=== PATIENT | female | born 1985 | race Caucasian/White ===

== ENCOUNTER 2016-10-11 01:15 | Inpatient (IN) ==
[~2016-10-11 01:15] MED LIST: Famotidine 20 MG/2 ML VIAL IVP PRN; Naloxone 0.4 MG/ML INJ IVP PRN; Ondansetron 4 MG/2 ML VIAL IVP PRN; Oxytocin 20 units/ LR 1000 mL 20 UNIT/1,000 ML BAG IVC SCH; Ringers Solution, Lactated 1,000 ML IVC SCH; Ringers Solution, Lactated 1,000 ML ONE
--- NOTE | 2016-10-11 01:24 | OB/GYN History & Physical ---
Date of Encounter: 10/11/16 Time of Encounter: 01:16 Assessment and Plan (1) 35 weeks gestation of Current visit: Yes Status: Acute (2) Placental abruption in third trimester Current visit: Yes Status: Acute 20 week US shows anterior placenta and normal fetus. Dr. Lopez at bedside for evaluation. Moderate amount of red blood noted to pad. On speculum insertion large amount of dark red blood pooling noted. Cervix swabbed, no active bleeding noted from cervix. Cervical exam shows fingertip/[address] Lopez who discussed placental abruption diagnosis with patient decision made to proceed with induction of labor with pitocin Admit to labor and delivery, start induction of labor with pitocin per policy Labs: CBC, PIH eval, Coagulation panel, Type and screen, UDS, H/H 11.6/35.2 PIH labs negative UDS negative PCN for GBS Nu[place] and epidural as desired Anticipate History of Present Illness Chief complaint: Vaginal bleeding HPI: Ms. Ackerman is a 31 year old female with complaints of vaginal bleeding. Pt states she was going to bathroom tonight and felt a large gush and noted it was blood, bleeding continued as she came to hospital. Reports good movement, and occasional contractions. Pt states uncomplicated course. Pt states this occurred in her last a few days prior to her due date and she delivered the next day by induction of labor. 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 History of depression is on Zoloft. Labs:B positive, Rubella immune, GBS unknown, all other serologies negative, Past Med Surg Social Fam HX - Past Medical History Medical history: no medical history Psychiatric history: depression - Social History Smoking Status: Current every day smoker Smokeless Tobacco Status: No Alcohol use: none - Family History Mother Adopted: No Family Member Ethnicity: Non- Living Status: Still Living Hx Family Cardiac Disorders: Yes Hx Family Respiratory Disorders: No Hx Family Cancer: No Hx Family GI Disorders: No Hx Family Genitourinary Disorders: No Hx Family Endocrine Disorder: No Hx Family Musculoskeletal Disorders: No Hx Family Neuromuscular Disorders: No Hx Family Neurologic Disorders: No Hx Family HEENT Disorders: No Hx Family Autoimmune Disorders: No Hx Family Reproductive Disorders: No Hx Family Psychosocial Disorders: No Hx Family Medical Disorders: No Obstetrical History - Pregnancies : 4 Para: 3 Term: 3 : 0 Ab's: 0 Livin Medications and Allergies Loratadine [Claritin] 10 mg PO DAILY #30 tablet 01/30/15 [Rx] Pnv No.122/Iron/Folic Acid [ Multi Tablet] 10/11/16 [History] Sertraline [Zoloft] 50 mg PO DAILY 10/11/16 [History] Allergies No Known Allergies Allergy (Verified 07/25/15 11:17) Exam - Vital Signs Vital signs: 122/61 P78 - Constitutional Constitutional: well developed, well nourished, no acute distress, average body habitus - Neck Neck exam: full ROM - Lungs Respiratory exam: CTAB - Cardiovascular Cardiovascular exam: RRR, +S1, +S2 - Abdomen Abdomen: Present: bowel sounds normal, gravid, diffuse tenderness Abdomen detail: right lower quadrant: tenderness, left lower quadrant: tenderness - Extremities Extremities exam: normal capillary refill, normal inspection - Vulva Vulva: bilateral: normal - Cervix Dilation: 0 (Fingertip per ) - Uterus Uterus exam: Present: normal size, normal contour - Comments Comments: Baseline 125/ moderate/ +accels/-decels Results Result Diagrams: 10/11/16 01:30 10/11/16 01:30 All other labs normal. - VTE Reasons for not Prescribing Prophylaxis: Medical contraindication
[2016-10-11 01:33] LABS: Basophils % 0.3 %; Eosinophils % 3.2 %; Hematocrit 35.2 % (35.3-44.9); Hemoglobin 11.6 g/dL (11.5-15.4); Immature Granulocytes % 2.9 % (0-4); Lymphocytes % 13.9 %; Mean Corpuscular Hemoglobin 29.5 pg (28.0-33.3); Mean Corpuscular Volume 89.6 fL (83.0-100.0); Mean Platelet Volume 11.4 fL (9.4-12.4); Monocytes % 9.5 %; Neutrophils # 11.3 K/mcL (1.6-8.9); Platelet Count 192 K/mcL (140-400); Red Blood Count 3.93 M/mcL (3.82-4.97); Red Cell Distribution Width 13.4 % (11.5-14.5); Segmented Neutrophils % 70.2 %
[2016-10-11 01:34] LABS: Basophils # 0.1 K/mcL (0.0-0.2); Eosinophils # 0.5 K/mcL (0.0-0.6); Lymphocytes # 2.3 K/mcL (0.6-4.6); Monocytes # 1.5 K/mcL (0.0-1.3)
[2016-10-11 01:36] LABS: Bilirubin,Urine Negative (Negative); Blood,Urine Large (Negative); Clarity,Urine Clear (Clear); Color,Urine Yellow (Yellow); Glucose,Urine (UA) Normal (Normal); Ketones,Urine Negative (Negative); Leukocyte Esterase,Urine Negative (Negative); Nitrite,Urine Negative (Negative); Protein,Urine Negative (Neg-Trace); Specific Gravity,Urine 1.006 (1.010-1.025); Urobilinogen,Urine Normal (Normal)
[2016-10-11 01:48] LABS: eGFR For African Americans > 60 (> 60); eGFR For Non-African Americans > 60 (> 60)
[2016-10-11 01:49] LABS: Amphetamine Screen,Urine Negative ng/mL (Cutoff=1000); Barbiturate Screen,Urine Negative ng/mL (Cutoff=200); Benzodiazepines Screen,Urine Negative ng/mL (Cutoff=200); Cannabinoid Screen,Urine Negative ng/mL (Cutoff = 50); Cocaine Screen,Urine Negative ng/mL (Cutoff= 300); Opiate Screen,Urine Negative ng/mL (Cutoff=300); Phencyclidine Screen,Urine Negative ng/mL (Cutoff=25)
[2016-10-11 01:50] LABS: Alanine Aminotransferase 17 Units/L (0-55); Aspartate Amino Transferase 17 Units/L (5-34); BUN/Creatinine Ratio 6 (6-26); Lactate Dehydrogenase 184 Units/L (159-327); Uric Acid 3.1 mg/dL (2.6-6.0); eGFR For African Americans > 60 (> 60); eGFR For Non-African Americans > 60 (> 60)
[2016-10-11 01:52] LABS: Blood Urea Nitrogen 3 mg/dL (7-20)
[2016-10-11 01:53] LABS: Bacteria,Urine Few per hpf (None-Few); Squamous Epithelial Cell,Urine Few per lpf (None-Few)
[2016-10-11 01:57] LABS: Prothrombin Time 10.6 Seconds (9.4-12.1)
[2016-10-11 01:59] LABS: Activated Partial Thrombo Time 24.4 Seconds (26.0-36.0)
[2016-10-11] MEDS ORDERED: Penicillin G Potassium 5,000,000 UNIT in D5% in Water (Mini-Bag+) 100 ML IVPB ONE (02:20)
[2016-10-11] MEDS ORDERED: *HR* Nalbuphine 20 MG/ML AMPUL IVP PRN (02:29)
[2016-10-11] MEDS: Penicillin G Potassium 2,500,000 UNIT in D5% in Water 100 ML IVPB SCH ×2 (02:29→11:43)
--- NOTE | 2016-10-11 07:07 | OB Labor Progress Note ---
Date of Encounter: 10/11/16 Time of Encounter: 07:05 Labor Progress Note - Subjective Subjective: Pt sleeping at this time - Vital Signs Vital Signs: VSS - Cervix Cervix: 3/70/-2 per RN - Heart Tones Heart Tones: 125/moderate/+accels.-decels - Mariano Colon Mariano Colon: q2-3 - Plan Plan: No further vaginal bleeding. Continue current management plan Pitcon per policy PCN for GBS unkn Anticipate
[2016-10-11] MEDS ORDERED: *HR* FentaNYL (PF) 100 MCG/2 ML VIAL ONE ×2 (07:32→11:32)
[2016-10-11] MEDS ORDERED: Bupivacaine-MPF 0.25% 10 ML VIAL ONE ×2 (07:33→11:32)
[2016-10-11] MEDS ORDERED: Epidural Premix (fent/bupiv) 110 ML EP ONE ×2 (07:33→12:57)
[2016-10-11 08:10] LABS: Calcium 8.4 mg/dL (8.6-10.8); Carbon Dioxide 22 mEq/L (19-29); Chloride 108 mEq/L (98-109); Glucose 88 mg/dL (70-99); Osmolality,Calculated 278 (280-300); Potassium 3.4 mEq/L (3.5-4.5); Sodium 136 mEq/L (136-145)
--- NOTE | 2016-10-11 08:14 | Anesthesia Evaluation PreOp ---
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: Denies Any Significant HX Other Medical History: Denies Any Significant HX Anesthesia History: No Prior Anesthetic Complications (denies personal h/o GA or NA complications; denies family h/o GA complications) : Yes Test: Positive Alcohol Use: none Drug use: none Medications and Allergies Loratadine [Claritin] 10 mg PO DAILY #30 tablet 01/30/15 [Rx] Pnv No.122/Iron/Folic Acid [ Multi Tablet] 10/11/16 [History] Sertraline [Zoloft] 50 mg PO DAILY 10/11/16 [History] Allergies No Known Allergies Allergy (Verified 07/25/15 11:17) - Meds/Allergy Pre-op Review Medications Reviewed: Yes Allergies Reviewed: Yes Beta Blockers on Current Med List: No Anesthesia Results - Labs 10/11/16 01:30 10/11/16 01:30 Anesthesia Exam 124/58, HR 71, RR22 Height: 1.6m Weight: 65kg NPO (# of Hours): solids > 8hrs Pain Scale: 10 Pain Scale Used: Numeric (1 - 10) - HEENT Pupil (Motor): Pupils equal Mallampati: II Teeth: Normal Oral Opening: Greater than 3 - INDUSTRIAL TECHNICIAN LOC: Oriented INDUSTRIAL TECHNICIAN Motor: Normal RUE, Normal LUE, Normal RLE, Normal LLE, Normal Face INDUSTRIAL TECHNICIAN Sensory: Normal: RUE, LUE, RLE, LLE, Face - Cardiac Rhythm: Regular Murmur: None - Pulmonary Breath Sounds: bilateral Clear Respiratory Effort: Symmetrical Anesthesia Assess/Plan ASA Score: 2 Modified [place] Scale for Level of Consciousness: Anixous, agitated or restless Anesthetic Plan: Regional Autologous Blood: No Monitoring Plan: Standard Monitors Recovery Plan: Other
[2016-10-11] MEDS ORDERED: *HR* FentaNYL (PF) 100 MCG/2 ML VIAL EP ONE (08:17)
[2016-10-11] MEDS ORDERED: Bupivacaine-MPF 0.25% 10 ML VIAL EP ONE (08:17)
--- NOTE | 2016-10-11 08:17 | Anesthesia Procedures ---
Date of Encounter: 10/11/16 Time of Encounter: 08:15 Procedures: Anesthesia - Epidural/Spinal Patient ID/Chart reviewed: Yes Patient examined: Yes OB Eval: Gestational age: 35 weeks 3 days OB Eval: : 4 OB Eval: Hx Para: 3 OB Eval: Dilated at (cm): 3 OB Eval: Contractions: Non-stressed pattern Consent Obtained: Yes Supplemental Oxygen: None/Room Air Site Prep: Aseptic Technique, Sterile prep and drape, Povidone-Iodine 1% Patient position: upright Local Anesthetic: Lidocaine 1% Amount of Local Anesthetic used: 3 Touhy Needle Gauge: 18 Touhy Needle Depth (cm): 4 Catheter Depth at Skin (cm): 9 Test Dose (1.5% Lido + Epi): Volume given (mls): 5 Test Dose Result: Negative Loading Dose: 0.25% Marcaine (mls): 5 Loading Dose: Fentanyl (mcg): 100 Loading Dose Administered: Thru Catheter Infusion Rate (mls/hr): 14 (w/ demand bolus of 4mL q20min PRN) Catheter Secured in Place: Tegaderm, Tape Interspace Used: L3-L4 Loss of Resistance (RIGOBERTO): Yes Blood: No CSF: No Paresthesia: Yes (transient RLE w/ passage of catheter) Vitals + FHT's: please see Stacey MENDOZA's electronic documentation for VS
[2016-10-11] MEDS ORDERED: Epidural Premix (fent/bupiv) 110 ML EP SCH (08:30)
--- NOTE | 2016-10-11 08:58 | OB Labor Progress Note ---
Date of Encounter: 10/11/16 Time of Encounter: 08:56 Labor Progress Note - Subjective Subjective: Pt reports increasing pain with contractions. - Cervix Cervix: 3/80/-2 - Heart Tones Heart Tones: Category I - [place]: 1.5-3.5 minutes - Plan Plan: Continue to monitor. Anesthesia to evaluate epidural. AROM when able. Anticipate .
[2016-10-11] MEDS ORDERED: Loratadine 10 MG TABLET PO SCH (09:00)
--- NOTE | 2016-10-11 09:29 | Anesthesia Progress Note ---
Date of Encounter: 10/11/16 Time of Encounter: 09:00 Anesthesia Note - Note Note: 10/11/16 09:27 called to patient bedside to evaluate breakthrough labor pain; patient describes bilateral lower abdominal pain with contractions L side > R side. Patient positioned onto L side and 10mL of 0.125% bupivicaine administered through epidural catheter. 15 min later patient reports significant improvement in pain. VSS
--- NOTE | 2016-10-11 11:29 | OB Labor Progress Note ---
Date of Encounter: 10/11/16 Time of Encounter: 11:27 Labor Progress Note - Subjective Subjective: Pt reports pain 5/10 with contractions at this time. - Cervix Cervix: 4/80/-1 - Heart Tones Heart Tones: Category I - [place]: irregular on toco. difficult to trace. - Interventions Interventions: AROM for large amount bloody fluid. IUPC placed posteriorly. - Plan Plan: Continue to monitor and titrate Pitocin.
--- NOTE | 2016-10-11 14:57 | OB Labor Progress Note ---
Date of Encounter: 10/11/16 Time of Encounter: 14:55 Labor Progress Note - Subjective Subjective: Pt reports contractions are feeling better since epidural bolus. - Cervix Cervix: 7-8/100/0 - Heart Tones Heart Tones: Category I- baseline 115, moderate variability - [place]: 2-3 - Plan Plan: COntinue to monitor. Anticipate .
--- NOTE | 2016-10-11 15:31 | Anesthesia Progress Note ---
Date of Encounter: 10/11/16 Time of Encounter: 14:28 Anesthesia Note - Note Note: Called to patient bedside to evaluate breakthrough labor pain. Confirmed catheter to still be secured at 9cm bhavin. Patient positioned in slight LLD tilt. 7.5mL of 0.25% bupivicaine + 100mcg fentanyl administered. Patient reports significant improvement in labor pain. VSS 10/11/16 15:29
[2016-10-11] MEDS ORDERED: Lidocaine 1% 20 ML MDV ONE (15:36)
[2016-10-11] MEDS ORDERED: MethylPREDNISolone 40 MG/ML VIAL IVP ONE (15:46)
[2016-10-11 16:10] LABS: Basophils # 0.1 K/mcL (0.0-0.2); Basophils % 0.3 %; Eosinophils # 0.4 K/mcL (0.0-0.6); Eosinophils % 2.3 %; Hematocrit 35.6 % (35.3-44.9); Hemoglobin 11.5 g/dL (11.5-15.4); Immature Granulocytes % 1.9 % (0-4); Lymphocytes % 10.9 %; Mean Corpuscular HGB Conc 32.3 g/dL (31.6-35.5); Mean Corpuscular Hemoglobin 29.7 pg (28.0-33.3); Mean Platelet Volume 11.3 fL (9.4-12.4); Monocytes # 1.3 K/mcL (0.0-1.3); Monocytes % 7.2 %; Neutrophils # 13.8 K/mcL (1.6-8.9); Platelet Count 165 K/mcL (140-400); Red Blood Count 3.87 M/mcL (3.82-4.97); Red Cell Distribution Width 13.8 % (11.5-14.5); Segmented Neutrophils % 77.4 %
[2016-10-11 16:18] LABS: Prothrombin Time 10.5 Seconds (9.4-12.1)
[2016-10-11 16:21] LABS: Activated Partial Thrombo Time 24.9 Seconds (26.0-36.0)
[2016-10-11 16:26] LABS: ABG HCO3 40.3 mEQ/L (21-27); ABG Oxygen Saturation 92 % (95-98); ABG PCO2 65 mmHg (35-45); ABG PO2 65 mmHg (85-104); ABG TCO2 42.3 mEq/L (20-26); Blood Gas FiO2 10 %
[2016-10-11 16:29] LABS: Alanine Aminotransferase 16 Units/L (0-55); Albumin 2.6 g/dL (3.5-5.0); Albumin/Globulin Ratio 0.7 (1.1-2.2); Alkaline Phosphatase 159 Units/L (38-126); Aspartate Amino Transferase 21 Units/L (5-34); BUN/Creatinine Ratio 4 (6-26); Bilirubin,Total 0.4 mg/dL (0.2-1.2); Calcium 8.5 mg/dL (8.6-10.8); Carbon Dioxide 23 mEq/L (19-29); Chloride 110 mEq/L (98-109); Globulin 3.5 g/dL (2.4-3.5); Glucose 66 mg/dL (70-99); Osmolality,Calculated 282 (280-300); Potassium 3.4 mEq/L (3.5-4.5); Sodium 139 mEq/L (136-145); Total Protein 6.1 g/dL (6.0-8.3); eGFR For African Americans > 60 (> 60); eGFR For Non-African Americans > 60 (> 60)
[2016-10-11 16:32] LABS: Blood Urea Nitrogen 2 mg/dL (7-20)
--- NOTE | 2016-10-11 16:55 | OB/GYN Procedure Note ---
Delivery - Delivery Date: 10/11/16 Provider: Angel Ellis Intrapartum events: abruption Delivery induction: AROM, oxytocin Delivery monitor: external FHT, internal uterine Anesthesia: epidural Estimated Blood Loss: 150 - (s) A Delivery Date: 10/11/16 Delivery Time: 15:28 Presentation: vertex Position: ATUL Route of delivery: Gender: Male Viability: Viable Pounds: 6 Ounces: 1 Weight Gram: 2.76 kg at 1 minute: 7 at 5 mins: 9 Shoulder Dystocia: not encountered Placenta: spontaneous Cord: 3 umbilical vessels - Repair Episiotomy: none Laceration Description: None - Complications Delivery complications: other Delivery comments: Pt admitted for placental abruption at 35 weeks gestation. She received pitocin for IOL and progressed normally to complete dilation. She was coached in pushing for 2 contractions to +[address] Ellis called at this time. Pt then proceeded to over intact perineum for viable male weighing 6lbs 1oz with apgars 8/9. Dr. Ellis arrived at the time of delivery and assumed care. - Disposition Mom disposition: stable in LDR [place] disposition: taken to nursery - Comments Comments: Patient status post normal spontaneous vaginal delivery of liveborn male . Patient initially did well however shortly after delivery she appeared quite lethargic in stated she felt quite lethargic and confused. She stated "she just cannot catch her breath". Placenta had been delivered without incident and was intact and her bleeding was minimal. Her blood pressure and pulse remained normal. She did appear quite lethargic and her pulse ox was and lower 90s. Given her clinical appearance was quite concerned about. Infundibulopelvic fluid embolism. Rapid response was called to obtain additional support and assistance. Call Dr. William Beatty at [facility] explain the situation to him and he did recommend giving Benadryl 25 mg and Solu-Medrol 40 mg IV Levaquin IV fluid bolus and gave oxygen support. CBC and coags were obtained and were normal. Blood gas was obtained with a pH of 7.40 PCU to was 65 PO2 was 65 HC03 was 40.3 total CO2 is 42.3 saturation was 92 and ABG base excess was 13. I did have the silo man come down evaluated patient who did not feel any further actions were needed at this point. Did observe patient for prolonged period of time on labor and delivery after delivery she did recover rectus baseline status without further incident.
[2016-10-11] MEDS ORDERED: MethylPREDNISolone 40 MG/ML VIAL IVP SCH (18:00)
[2016-10-11] MEDS ORDERED: Measles/Mumps/Rubella Vacc 0.5 ML VIAL SQ PRN (20:45)
[2016-10-11] MEDS ORDERED: Oxytocin 20 units/ LR 1000 mL 20 UNIT/1,000 ML BAG IVC SCH (20:45)
[2016-10-11] MEDS ORDERED: Acetaminophen 325 MG TABLET PO PRN (20:45)
[2016-10-11] MEDS ORDERED: Rho Immune Globulin 1,500 UNIT SYRINGE IM PRN (20:45)
[2016-10-12 07:33] LABS: Basophils # 0.1 K/mcL (0.0-0.2); Basophils % 0.2 %; Eosinophils # 0.4 K/mcL (0.0-0.6); Eosinophils % 1.8 %; Hematocrit 33.5 % (35.3-44.9); Hemoglobin 11.2 g/dL (11.5-15.4); Immature Granulocytes % 1.4 % (0-4); Lymphocytes # 2.5 K/mcL (0.6-4.6); Lymphocytes % 11.6 %; Mean Corpuscular HGB Conc 33.4 g/dL (31.6-35.5); Mean Corpuscular Volume 89.8 fL (83.0-100.0); Mean Platelet Volume 12.3 fL (9.4-12.4); Monocytes # 2.3 K/mcL (0.0-1.3); Monocytes % 10.8 %; Neutrophils # 15.9 K/mcL (1.6-8.9); Platelet Count 154 K/mcL (140-400); Red Blood Count 3.73 M/mcL (3.82-4.97); Red Cell Distribution Width 13.6 % (11.5-14.5); Segmented Neutrophils % 74.2 %
--- NOTE | 2016-10-12 08:33 | Discharge Summary ---
Date of Encounter: 10/12/16 Time of Encounter: 08:29 - Discharge Diagnosis (1) Vaginal delivery Priority: Primary Status: Acute Comments: Continue routine care discharge home today (2) Breast feeding status of mother Priority: Secondary Status: Acute Comments: support prn - Discharge Medications Prescriptions: Breast Pump [BREAST PUMP] 1 each .ROUTE AD #1 each Home Medications: Loratadine [Claritin] 10 mg PO DAILY #30 tablet 01/30/15 [Rx] Pnv No.122/Iron/Folic Acid [ Multi Tablet] 10/11/16 [History] Sertraline [Zoloft] 50 mg PO DAILY 10/11/16 [History] Breast Pump [BREAST PUMP] 1 each .ROUTE AD #1 each 10/12/16 [Rx] Vit/FA 1 each PO DAILY tab 10/12/16 [Rx] Allergies/Adverse Reactions: Allergies No Known Allergies Allergy (Verified 07/25/15 11:17) Data Procedures and tests throughout hospitalization: Laboratory Tests 10/11/16 10/11/16 10/11/16 01:30 01:30 01:30 WBC 16.2 H RBC 3.93 Hgb 11.6 Hct 35.2 L MCV 89.6 MCH 29.5 MCHC 33.0 RDW 13.4 Plt Count 192 MPV 11.4 Immature Gran % 2.9 Seg Neutrophils % 70.2 Lymphocytes % 13.9 Monocytes % 9.5 Eosinophils % 3.2 Basophils % 0.3 Neutrophils # 11.3 H Lymphocytes # 2.3 Monocytes # 1.5 H Eosinophils # 0.5 Basophils # 0.1 PT 10.6 INR 1.0 APTT 24.4 L Fibrinogen 421 H ABG pH ABG pCO2 ABG pO2 ABG HCO3 ABG Total CO2 ABG O2 Saturation ABG Base Excess Blood Gas Modality Inspired O2 Sodium Potassium Chloride Carbon Dioxide BUN Creatinine Est GFR ( Amer) Est GFR (Non-Af Amer) BUN/Creatinine Ratio Glucose POC Glucose Calculated Osmolality Uric Acid Calcium Total Bilirubin AST ALT Alkaline Phosphatase Lactate Dehydrogenase Serum Total Protein Albumin Globulin Albumin/Globulin Ratio Urine Color Yellow Urine Clarity Clear Urine pH 7.0 Ur Specific [place] 1.006 L Urine Protein Negative Urine Glucose (UA) Normal Urine Ketones Negative Urine Blood Large H Urine Nitrite Negative Urine Bilirubin Negative Urine Urobilinogen Normal Ur Leukocyte Esterase Negative Urine Microscopic RBC 3-5 H Urine Microscopic WBC Test Not Performed Ur Squamous Epith Cells Few Urine Bacteria Few Ur Culture Indicated? NO Urine Opiates Screen Ur Barbiturates Screen Ur Phencyclidine Scrn Ur Amphetamines Screen U Benzodiazepines Scrn Urine Cocaine Screen U Marijuana (THC) Screen Specimen Rejected Blood Type Antibody Screen Crossmatch 10/11/16 10/11/16 10/11/16 01:30 01:30 01:30 WBC RBC Hgb Hct MCV MCH MCHC RDW Plt Count MPV Immature Gran % Seg Neutrophils % Lymphocytes % Monocytes % Eosinophils % Basophils % Neutrophils # Lymphocytes # Monocytes # Eosinophils # Basophils # PT INR APTT Fibrinogen ABG pH ABG pCO2 ABG pO2 ABG HCO3 ABG Total CO2 ABG O2 Saturation ABG Base Excess Blood Gas Modality Inspired O2 Sodium 136 Potassium 3.4 L Chloride 108 Carbon Dioxide 22 BUN 3 L Creatinine 0.52 L 0.54 L Est GFR ( Amer) > 60 > 60 Est GFR (Non-Af Amer) > 60 > 60 BUN/Creatinine Ratio 6 Glucose 88 POC Glucose Calculated Osmolality 278 L Uric Acid 3.1 Calcium 8.4 L Total Bilirubin AST 17 ALT 17 Alkaline Phosphatase Lactate Dehydrogenase 184 Serum Total Protein Albumin Globulin Albumin/Globulin Ratio Urine Color Urine Clarity Urine pH Ur Specific [place] Urine Protein Urine Glucose (UA) Urine Ketones Urine Blood Urine Nitrite Urine Bilirubin Urine Urobilinogen Ur Leukocyte Esterase Urine Microscopic RBC Urine Microscopic WBC Ur Squamous Epith Cells Urine Bacteria Ur Culture Indicated? Urine Opiates Screen Ur Barbiturates Screen Ur Phencyclidine Scrn Ur Amphetamines Screen U Benzodiazepines Scrn Urine Cocaine Screen U Marijuana (THC) Screen Specimen Rejected Blood Type TNP Antibody Screen TNP Crossmatch 10/11/16 10/11/16 10/11/16 01:30 15:35 15:35 WBC 17.9 H RBC 3.87 Hgb 11.5 Hct 35.6 MCV 92.0 MCH 29.7 MCHC 32.3 RDW 13.8 Plt Count 165 MPV 11.3 Immature Gran % 1.9 Seg Neutrophils % 77.4 Lymphocytes % 10.9 Monocytes % 7.2 Eosinophils % 2.3 Basophils % 0.3 Neutrophils # 13.8 H Lymphocytes # 2.0 Monocytes # 1.3 Eosinophils # 0.4 Basophils # 0.1 PT 10.5 INR 1.0 APTT 24.9 L Fibrinogen ABG pH ABG pCO2 ABG pO2 ABG HCO3 ABG Total CO2 ABG O2 Saturation ABG Base Excess Blood Gas Modality Inspired O2 Sodium Potassium Chloride Carbon Dioxide BUN Creatinine Est GFR ( Amer) Est GFR (Non-Af Amer) BUN/Creatinine Ratio Glucose POC Glucose Calculated Osmolality Uric Acid Calcium Total Bilirubin AST ALT Alkaline Phosphatase Lactate Dehydrogenase Serum Total Protein Albumin Globulin Albumin/Globulin Ratio Urine Color Urine Clarity Urine pH Ur Specific [place] Urine Protein Urine Glucose (UA) Urine Ketones Urine Blood Urine Nitrite Urine Bilirubin Urine Urobilinogen Ur Leukocyte Esterase Urine Microscopic RBC Urine Microscopic WBC Ur Squamous Epith Cells Urine Bacteria Ur Culture Indicated? Urine Opiates Screen Negative Ur Barbiturates Screen Negative Ur Phencyclidine Scrn Negative Ur Amphetamines Screen Negative U Benzodiazepines Scrn Negative Urine Cocaine Screen Negative U Marijuana (THC) Screen Negative Specimen Rejected Blood Type Antibody Screen Crossmatch 10/11/16 10/11/16 10/11/16 15:35 15:47 15:50 WBC RBC Hgb Hct MCV MCH MCHC RDW Plt Count MPV Immature Gran % Seg Neutrophils % Lymphocytes % Monocytes % Eosinophils % Basophils % Neutrophils # Lymphocytes # Monocytes # Eosinophils # Basophils # PT INR APTT Fibrinogen ABG pH ABG pCO2 ABG pO2 ABG HCO3 ABG Total CO2 ABG O2 Saturation ABG Base Excess Blood Gas Modality Inspired O2 Sodium 139 Potassium 3.4 L Chloride 110 H Carbon Dioxide 23 BUN 2 L Creatinine 0.52 L Est GFR ( Amer) > 60 Est GFR (Non-Af Amer) > 60 BUN/Creatinine Ratio 4 L Glucose 66 L POC Glucose 69 Calculated Osmolality 282 Uric Acid Calcium 8.5 L Total Bilirubin 0.4 AST 21 ALT 16 Alkaline Phosphatase 159 H Lactate Dehydrogenase Serum Total Protein 6.1 Albumin 2.6 L Globulin 3.5 Albumin/Globulin Ratio 0.7 L Urine Color Urine Clarity Urine pH Ur Specific [place] Urine Protein Urine Glucose (UA) Urine Ketones Urine Blood Urine Nitrite Urine Bilirubin Urine Urobilinogen Ur Leukocyte Esterase Urine Microscopic RBC Urine Microscopic WBC Ur Squamous Epith Cells Urine Bacteria Ur Culture Indicated? Urine Opiates Screen Ur Barbiturates Screen Ur Phencyclidine Scrn Ur Amphetamines Screen U Benzodiazepines Scrn Urine Cocaine Screen U Marijuana (THC) Screen Specimen Rejected Volume Blood Type Antibody Screen Crossmatch 10/11/16 10/11/16 10/12/16 15:53 16:51 06:43 WBC 21.4 H RBC 3.73 L Hgb 11.2 L Hct 33.5 L MCV 89.8 MCH 30.0 MCHC 33.4 RDW 13.6 Plt Count 154 MPV 12.3 Immature Gran % 1.4 Seg Neutrophils % 74.2 Lymphocytes % 11.6 Monocytes % 10.8 Eosinophils % 1.8 Basophils % 0.2 Neutrophils # 15.9 H Lymphocytes # 2.5 Monocytes # 2.3 H Eosinophils # 0.4 Basophils # 0.1 PT INR APTT Fibrinogen ABG pH 7.40 ABG pCO2 65 H ABG pO2 65 L ABG HCO3 40.3 H ABG Total CO2 42.3 H ABG O2 Saturation 92 L ABG Base Excess 13.0 H Blood Gas Modality NRB Inspired O2 10 Sodium Potassium Chloride Carbon Dioxide BUN Creatinine Est GFR ( Amer) Est GFR (Non-Af Amer) BUN/Creatinine Ratio Glucose POC Glucose Calculated Osmolality Uric Acid Calcium Total Bilirubin AST ALT Alkaline Phosphatase Lactate Dehydrogenase Serum Total Protein Albumin Globulin Albumin/Globulin Ratio Urine Color Urine Clarity Urine pH Ur Specific [place] Urine Protein Urine Glucose (UA) Urine Ketones Urine Blood Urine Nitrite Urine Bilirubin Urine Urobilinogen Ur Leukocyte Esterase Urine Microscopic RBC Urine Microscopic WBC Ur Squamous Epith Cells Urine Bacteria Ur Culture Indicated? Urine Opiates Screen Ur Barbiturates Screen Ur Phencyclidine Scrn Ur Amphetamines Screen U Benzodiazepines Scrn Urine Cocaine Screen U Marijuana (THC) Screen Specimen Rejected Blood Type B POSITIVE Antibody Screen NEGATIVE Crossmatch See Detail Labs on day of discharge: Labs from last 24 hours 10/12/16 10/11/16 10/11/16 06:43 16:51 15:53 WBC 21.4 H RBC 3.73 L Hgb 11.2 L Hct 33.5 L MCV 89.8 MCH 30.0 MCHC 33.4 RDW 13.6 Plt Count 154 MPV 12.3 Immature Gran % 1.4 Seg Neutrophils % 74.2 Lymphocytes % 11.6 Monocytes % 10.8 Eosinophils % 1.8 Basophils % 0.2 Neutrophils # 15.9 H Lymphocytes # 2.5 Monocytes # 2.3 H Eosinophils # 0.4 Basophils # 0.1 PT INR APTT ABG pH 7.40 ABG pCO2 65 H ABG pO2 65 L ABG HCO3 40.3 H ABG Total CO2 42.3 H ABG O2 Saturation 92 L ABG Base Excess 13.0 H Blood Gas Modality NRB Inspired O2 10 Sodium Potassium Chloride Carbon Dioxide BUN Creatinine Est GFR ( Amer) Est GFR (Non-Af Amer) BUN/Creatinine Ratio Glucose POC Glucose Calculated Osmolality Calcium Total Bilirubin AST ALT Alkaline Phosphatase Serum Total Protein Albumin Globulin Albumin/Globulin Ratio Specimen Rejected Blood Type B POSITIVE Antibody Screen NEGATIVE Crossmatch See Detail 10/11/16 10/11/16 10/11/16 15:50 15:47 15:35 WBC RBC Hgb Hct MCV MCH MCHC RDW Plt Count MPV Immature Gran % Seg Neutrophils % Lymphocytes % Monocytes % Eosinophils % Basophils % Neutrophils # Lymphocytes # Monocytes # Eosinophils # Basophils # PT INR APTT ABG pH ABG pCO2 ABG pO2 ABG HCO3 ABG Total CO2 ABG O2 Saturation ABG Base Excess Blood Gas Modality Inspired O2 Sodium 139 Potassium 3.4 L Chloride 110 H Carbon Dioxide 23 BUN 2 L Creatinine 0.52 L Est GFR ( Amer) > 60 Est GFR (Non-Af Amer) > 60 BUN/Creatinine Ratio 4 L Glucose 66 L POC Glucose 69 Calculated Osmolality 282 Calcium 8.5 L Total Bilirubin 0.4 AST 21 ALT 16 Alkaline Phosphatase 159 H Serum Total Protein 6.1 Albumin 2.6 L Globulin 3.5 Albumin/Globulin Ratio 0.7 L Specimen Rejected Volume Blood Type Antibody Screen Crossmatch 10/11/16 10/11/16 10/11/16 15:35 15:35 01:30 WBC 17.9 H RBC 3.87 Hgb 11.5 Hct 35.6 MCV 92.0 MCH 29.7 MCHC 32.3 RDW 13.8 Plt Count 165 MPV 11.3 Immature Gran % 1.9 Seg Neutrophils % 77.4 Lymphocytes % 10.9 Monocytes % 7.2 Eosinophils % 2.3 Basophils % 0.3 Neutrophils # 13.8 H Lymphocytes # 2.0 Monocytes # 1.3 Eosinophils # 0.4 Basophils # 0.1 PT 10.5 INR 1.0 APTT 24.9 L ABG pH ABG pCO2 ABG pO2 ABG HCO3 ABG Total CO2 ABG O2 Saturation ABG Base Excess Blood Gas Modality Inspired O2 Sodium Potassium Chloride Carbon Dioxide BUN Creatinine Est GFR ( Amer) Est GFR (Non-Af Amer) BUN/Creatinine Ratio Glucose POC Glucose Calculated Osmolality Calcium Total Bilirubin AST ALT Alkaline Phosphatase Serum Total Protein Albumin Globulin Albumin/Globulin Ratio Specimen Rejected Blood Type TNP Antibody Screen TNP Crossmatch Date of admission: 10/11/16 01:15 Primary care physician: Kaylin Landa CNP Consults: 10/11/16 20:45 Consult to Administrative Professional [CONS] Routine Comment: Vaginal delivery, consult needed Discharging clinician: Jolene Alves Anticipated date of discharge: 10/12/16 - Patient Status Disposition: Home, Self-Care Condition: Good Functional capacity at discharge: independent ambulation - Discharge Instructions Follow Up With: Kaylin Landa CNP [Primary Care Provider] - Angel Ellis MD [Partnered Physician] - - Diet and Activity Activity: increase activity as tolerated Diet: regular diet Hospital Course Reason for admission: induction of labor (for abruption) Delivery: Episiotomy: none Discharge diagnosis: delivery [place] baby: male (breast feeding in SCN) Time Attestation: Total time spent providing and/or coordinating discharge services: Time Spent: Less than 30 minutes Exam - Constitutional Vitals: Temp Pulse Resp BP Pulse Ox 98.2 F 67 12 93/56 96 10/12/16 04:50 10/12/16 04:50 10/12/16 04:50 10/12/16 04:50 10/12/16 04:50 General appearance IM: A&O X 3, pleasant, answers questions appropriately - Respiratory Respiratory exam: Present: CTAB - Cardiovascular Cardiovascular exam IM: Present: RRR, +S1, +S2 - GI/Abdominal GI/Abdominal exam IM: normal bowel sounds - Uterine Tone: Firm Uterus Position: 1 Finger Below Umbilicus, Midline - Extremities Exam Extremities exam IM: Present: full ROM, normal capillary refill, normal inspection - Neurological Exam Neurological exam: alert, oriented X3, reflexes normal
[2016-10-12] MEDS ORDERED: Prenatal Vit/FA 1 EACH TABLET PO SCH (09:00)
[2016-10-12 09:55] VITALS: BP 107/68
== END 2016-10-12 14:44 | disposition home or self-care (01) | DRG 560 ==
LOC: 1NENULAB → 1NENUOBS 20:16
PROVIDERS: ADMIT Advanced Practice Midwife; ATTEND Advanced Practice Midwife

== ENCOUNTER 2022-01-16 13:47 | Observation (INO) ==
[2022-01-16] MEDS ORDERED: Iopamidol - 370 500 ML MLS IVP ONE (14:12)
[2022-01-16] MEDS ORDERED: Ampicillin/Sulbactam 3,000 MG in 0.9 % Sodium Chloride Mini Bag 100 ML IVPB ONE (14:12)
[2022-01-16] MEDS ORDERED: Ketorolac 30 MG/ML VIAL IVP ONE (14:13)
[2022-01-16 15:15] LABS: Basophils # 0.1 K/mcL (0.0-0.2); Basophils % 0.4 %; Eosinophils # 0.2 K/mcL (0.0-0.6); Eosinophils % 1.4 %; Hematocrit 44.6 % (35.3-44.9); Hemoglobin 15.1 g/dL (11.5-15.4); Immature Granulocytes % 0.3 % (0-4); Lymphocytes # 1.8 K/mcL (0.6-4.6); Lymphocytes % 15.7 %; Mean Corpuscular HGB Conc 33.9 g/dL (31.6-35.5); Mean Corpuscular Hemoglobin 31.3 pg (28.0-33.3); Mean Corpuscular Volume 92.5 fL (83.0-100.0); Mean Platelet Volume 9.8 fL (9.4-12.4); Monocytes % 9.3 %; Neutrophils # 8.1 K/mcL (1.6-8.9); Platelet Count 303 K/mcL (140-400); Red Blood Count 4.82 M/mcL (3.82-4.97); Red Cell Distribution Width 12.2 % (11.5-14.5); Segmented Neutrophils % 72.9 %; White Blood Count 11.2 K/mcL (4.3-11.1)
[2022-01-16 15:37] LABS: BUN/Creatinine Ratio 17 (6-26); Blood Urea Nitrogen 10 mg/dL (6-20); Calcium 9.9 mg/dL (8.6-10.3); Carbon Dioxide 28 mEq/L (23-29); Chloride 103 mEq/L (98-107); Glucose 86 mg/dL (70-105); Osmolality,Calculated 286 (280-300); Potassium 3.9 mEq/L (3.5-5.1); Sodium 139 mEq/L (136-145)
[2022-01-16] MEDS ORDERED: Naloxone 0.4 MG/ML INJ IVP PRN (17:41)
[2022-01-16] MEDS ORDERED: Ondansetron 4 MG/2 ML VIAL IVP PRN (17:41)
[2022-01-16] MEDS ORDERED: Morphine Sulfate 2 MG/ML SYRINGE IVP STA (17:45)
[2022-01-16] MEDS: 0.9 % Sodium Chloride 1,000 ML IVC SCH (20:30)
[2022-01-16] MEDS: Ampicillin/Sulbactam 3,000 MG in 0.9 % Sodium Chloride Mini Bag 100 ML IVPB SCH (20:30)
[2022-01-16] MEDS ORDERED: Ketorolac 30 MG/ML VIAL IVP SCH (21:00)
[2022-01-17] MEDS: Ketorolac 30 MG/ML VIAL IVP SCH ×4 (03:09→08:38)
[2022-01-17] MEDS: Ampicillin/Sulbactam 3,000 MG in 0.9 % Sodium Chloride Mini Bag 100 ML IVPB SCH ×4 (03:16→20:45)
[2022-01-17] MEDS: 0.9 % Sodium Chloride 1,000 ML IVC SCH (03:16)
[2022-01-17 06:32] LABS: Basophils % 0.3 %; Eosinophils % 0.1 %; Hematocrit 39.2 % (35.3-44.9); Immature Granulocytes % 0.5 % (0-4); Lymphocytes # 1.4 K/mcL (0.6-4.6); Lymphocytes % 14.5 %; Mean Corpuscular HGB Conc 34.2 g/dL (31.6-35.5); Mean Corpuscular Hemoglobin 31.5 pg (28.0-33.3); Mean Platelet Volume 10.5 fL (9.4-12.4); Monocytes # 0.3 K/mcL (0.0-1.3); Monocytes % 2.6 %; Neutrophils # 8.1 K/mcL (1.6-8.9); Platelet Count 276 K/mcL (140-400); Red Blood Count 4.26 M/mcL (3.82-4.97); Red Cell Distribution Width 12.2 % (11.5-14.5); White Blood Count 9.9 K/mcL (4.3-11.1)
[2022-01-17 06:38] LABS: Hemoglobin 13.4 g/dL (11.5-15.4)
[2022-01-17 06:56] LABS: BUN/Creatinine Ratio 36 (6-26); Blood Urea Nitrogen 19 mg/dL (6-20); Calcium 8.6 mg/dL (8.6-10.3); Carbon Dioxide 24 mEq/L (23-29); Chloride 105 mEq/L (98-107); Glucose 120 mg/dL (70-105); Osmolality,Calculated 291 (280-300); Potassium 3.8 mEq/L (3.5-5.1); Sodium 139 mEq/L (136-145)
[2022-01-17] MEDS: Morphine Sulfate 2 MG/ML SYRINGE IVP PRN (08:33)
[2022-01-18] MEDS: Morphine Sulfate 2 MG/ML SYRINGE IVP PRN (01:48)
[2022-01-18] MEDS: Ampicillin/Sulbactam 3,000 MG in 0.9 % Sodium Chloride Mini Bag 100 ML IVPB SCH (02:57)
[2022-01-18 03:13] LABS: Hemoglobin 12.8 g/dL (11.5-15.4); Mean Corpuscular HGB Conc 33.7 g/dL (31.6-35.5); Mean Corpuscular Hemoglobin 30.8 pg (28.0-33.3); Mean Corpuscular Volume 91.3 fL (83.0-100.0); Mean Platelet Volume 10.2 fL (9.4-12.4); Platelet Count 294 K/mcL (140-400); Red Blood Count 4.16 M/mcL (3.82-4.97); Red Cell Distribution Width 12.2 % (11.5-14.5)
[2022-01-18 03:26] LABS: White Blood Count 16.9 K/mcL (4.3-11.1)
[2022-01-18 03:38] LABS: BUN/Creatinine Ratio 39 (6-26); Blood Urea Nitrogen 17 mg/dL (6-20); Calcium 9.2 mg/dL (8.6-10.3); Carbon Dioxide 25 mEq/L (23-29); Chloride 105 mEq/L (98-107); Glucose 131 mg/dL (70-105); Osmolality,Calculated 285 (280-300); Potassium 4.3 mEq/L (3.5-5.1); Sodium 136 mEq/L (136-145)
[2022-01-18 06:55] VITALS: BP 107/67; PULSE 45; TEMP 97.9; O2SAT 97
== END 2022-01-18 11:24 | disposition home or self-care (01) ==
LOC: EMEROOARM 13:47 → 3BNU 13:47 → SUATTDRO 18:10 → 3BNU 18:59
PROVIDERS: ADMIT Internal Medicine; ATTEND Student in an Organized Health Care Education/Training Program